=== PATIENT | male | born 1935 | race Hispanic/Latino ===

== ENCOUNTER 2023-07-20 13:31 | Emergency (ER) | payer OTHER ==
[2023-07-20] MEDS ORDERED: Acetaminophen 500 MG TAB ONE (16:00)
== END 2023-07-20 16:55 | disposition home or self-care (01) ==
LOC: ERS 13:31
DX: S60.811A Abrasion of right wrist, initial encounter (principal); S00.81XA Abrasion of other part of head, initial encounter; F17.210 Nicotine dependence, cigarettes, uncomplicated; V44.6XXA Car passenger injured in collision with heavy transport vehicle or bus in traffic accident, initial encounter
CPT/HCPCS: 70450; 72125